=== PATIENT | male | born 1995 | race Caucasian/White ===

== ENCOUNTER 2018-04-27 11:53 | Emergency (ER) | payer BC ==
--- NOTE | 2018-04-27 13:17 | EDPHY ---
H & P Time Seen by Provider: 04/27/18 13:16 HPI/ROS: Chief complaint. Sore throat HPI. 22-year-old male presents with sore throat and ear pain for 3 days. Coughing that is nonproductive. He is having trouble sleeping because of cough sore throat and sore ears. He feels is ears are quite full. He has a history of otitis media and this feels similar. He has subjective fever. He has had a difficult time sleeping. No abdominal pain, vomiting, diarrhea. No rash. No recent travel . Exposure recently to several people with mono ROS 10 systems were reviewed and negative with the exception of the elements mentioned in the history of present illness Past Medical/Surgical History: Healthy Social History: Single, nonsmoker, no alcohol Smoking Status: Never smoked Physical Exam: General Appearance: Alert well-developed male mild distress vital signs are stable. Eyes: Pupils equal and round no pallor or injection. ENT, right tympanic membrane erythematous. Pharynx injected without exudate. Swallowing secretions. Speaking in full sentences. No stridor. Respiratory: Mild inspiratory expiratory rhonchi Cardiovascular: Regular rate and rhythm. Gastrointestinal: Abdomen is soft and nontender, no masses, bowel sounds normal. Neurological: Awake and alert, sensory and motor exams grossly normal. Skin: Warm and dry, no rashes. Musculoskeletal: Neck is supple nontender. Extremities symmetrical, full range of motion. Psychiatric: Patient is oriented X 3, there is no agitation. Constitutional: Initial Vital Signs Temperature (C) 36.9 C 04/27/18 11:55 Heart Rate 92 04/27/18 11:55 Respiratory Rate 16 04/27/18 11:55 Blood Pressure 106/71 04/27/18 11:55 O2 Sat (%) 95 04/27/18 11:55 O2 Delivery Mode Room Air Allergies/Adverse Reactions: Iodine and Iodide Containing Produc Allergy (Verified 04/27/18 11:54) Home Medications: Medication Instructions Recorded Amoxicillin Trihydrate [Amoxil] 500 mg PO TID 7 Days cap 04/27/18 Hydrocodone/APAP 5/325 [Peel 1 each PO Q4-6PRN PRN #7 tab 04/27/18 5/325 (*)] Medical Decision Making Procedures: IV normal saline Rapid strep negative Decadron orally ED Course/Re-evaluation: Re-evaluation 2:35 p.m.. Patient is stable. He and I discussed laboratory evaluation, treatment plan including criteria for return and importance of follow-up and further evaluation. He expresses understanding and agreement Differential Diagnosis: Patient has otitis media by exam. Pharynx is negative for strep. He does not have mono. He does not have stridor or difficulty swallowing secretions. He speaks in a normal voice. This may be viral syndrome. Flu was negative - Data Points Laboratory Results: 04/27/18 04/27/18 04/27/18 Unknown 14:00 13:05 Nasal Influenza A PCR NEGATIVE FOR FLU A (NEGATIVE) Nasal Influenza B PCR NEGATIVE FOR FLU B (NEGATIVE) Monoscreen NEGATIVE (NEGATIVE) Group A Strep Screen Group A Strep DNA Pending 04/27/18 11:58 Nasal Influenza A PCR Nasal Influenza B PCR Monoscreen Group A Strep Screen NEGATIVE (NEGATIVE) Group A Strep DNA Medications Given: Discontinued Medications Dexamethasone (Decadron) 8 mg PO EDNOW ONE Stop: 04/27/18 13:35 Last Admin: 04/27/18 14:02 Dose: 8 mg Sodium Chloride (Ns) 1,000 mls @ 0 mls/hr IV EDNOW ONE; Wide Open PRN Reason: Protocol Stop: 04/27/18 13:36 Last Admin: 04/27/18 14:03 Dose: 1,000 mls Ibuprofen (Motrin) 800 mg PO EDNOW ONE Stop: 04/27/18 13:36 Last Admin: 04/27/18 14:02 Dose: 800 mg Departure - Departure Disposition: Home, Routine, Self-Care Clinical Impression: Otitis media Qualifiers: Otitis media type: unspecified Chronicity: acute Qualified Code(s): H66.90 - Otitis media, unspecified, unspecified ear Condition: Good Instructions: Ear Infection (ED) Additional Instructions: Amoxicillin as antibiotic Ibuprofen 600 mg every 6 hr for discomfort Hydrocodone in addition if necessary for pain Return for worsening symptoms. Recheck in 2-3 days if not improving Referrals: NONE *PRIMARY CARE P,. [Primary Care Provider] - As per Instructions Ingris Christy MD [Medical Doctor] - 2-3 days, if not improved Prescriptions: Amoxicillin Trihydrate [Amoxil] 500 mg PO TID 7 Days cap Hydrocodone/APAP 5/325 [Peel 5/325 (*)] 1 each PO Q4-6PRN PRN #7 tab PRN Reason: Pain, Moderate
[2018-04-27] MEDS ORDERED: DEXAMETHASONE 4 MG TAB PO ONE (13:34)
[2018-04-27] MEDS ORDERED: NS 1,000 ML IV ONE (13:35)
[2018-04-27] MEDS ORDERED: IBUPROFEN 800 MG TAB PO ONE (13:35)
[2018-04-27 14:56] VITALS: BP 103/68
== END 2018-04-27 14:55 | disposition home or self-care (01) ==
LOC: EEVIPCON 11:53
DX: H66.90 Otitis media, unspecified, unspecified ear (principal)

== ENCOUNTER 2018-06-06 10:22 | Emergency (ER) | payer BC ==
[2018-06-06 10:31] VITALS: BP 155/90
--- NOTE | 2018-06-06 11:43 | EDPHY ---
H & P Stated Complaint: L ear pain since this am Time Seen by Provider: 06/06/18 11:36 HPI/ROS: HPI: This is a 22-year-old male who presents with Chief Complaint: Left ear pain times several hours Location: Left ear Quality: Pain Duration: Several hours Signs and Symptoms: + subjective fever, no nausea, no vomiting, no diarrhea, no urinary symptoms, no chest pain, no shortness of breath, no wheezing, no cough, no sore throat, no neck stiffness, no joint pain, no swollen glands, no rash, + sinus congestion Timing: Acute constant Severity: Moderate Context: Patient is student at [employer], presents with waking up this morning with sudden onset of left ear pain that is nonradiating in nature and described as 8/10. Patient reports that he has had some nasal congestion over the last few days. Denies any elevation changes. Reports that he feels "like I have a fever." Denies any ear discharge or bleeding. Denies tinnitus. Modifying Factors: None Comment: ROS: A comprehensive 10 system review of systems is otherwise negative aside from elements mentioned in the history of present illness. MEDICAL/SURGICAL/SOCIAL HISTORY: Medical history: Generally healthy. Does not take any regular medications. Surgical history: Denies Social history: Admits to alcohol and marijuana use. Family history noncontributory. CONSTITUTIONAL: Nontoxic-appearing young adult white male, awake and alert, no obvious distress HEENT: Atraumatic and normocephalic, PERRL, EOMI. Nares patent; no rhinorrhea; mild nasal mucosal edema. Left Tympanic membranes bright red, bulging; TM intact. Right tympanic membrane clear. Oropharynx clear, no exudate and moist pink mucosa. Airway patent. No lymphadenopathy. No meningismus. Cardiovascular: Normal S1/S2, regular rate, regular rhythm, without murmur rub or gallop. PULMONARY/CHEST: Symmetrical and nontender. Clear to auscultation bilaterally. Good air movement. No accessory muscle usage. ABDOMEN: Soft, nondistended, nontender, no rebound, no guarding, no peritoneal signs, no masses or organomegaly. No CVAT. EXTREMITIES: 2/2 pulses, strength 5/5, no deformities, no clubbing, no cyanosis or edema. NEUROLOGICAL: no focal neuro deficits. GCS 15. SKIN: Warm and dry, no erythema. no rash. Good capillary refill. Source: Patient Exam Limitations: No limitations - Medical/Surgical History Hx Asthma: No Hx Chronic Respiratory Disease: No Hx Diabetes: No Hx Cardiac Disease: No Hx Renal Disease: No Hx Cirrhosis: No Hx Alcoholism: No Hx HIV/AIDS: No Hx Splenectomy or Spleen Trauma: No Other PMH: DENIES - Social History Smoking Status: Never smoked Constitutional: Initial Vital Signs Temperature (C) 36.7 C 06/06/18 10:29 Heart Rate 88 06/06/18 10:29 Respiratory Rate 24 H 06/06/18 10:29 Blood Pressure 155/90 H 06/06/18 10:29 O2 Sat (%) 99 06/06/18 10:29 O2 Delivery Mode Room Air Allergies/Adverse Reactions: Iodine and Iodide Containing Produc Allergy (Verified 04/27/18 11:54) Home Medications: Medication Instructions Recorded Amoxicillin/Clavulanate Pot 875 mg PO BID #14 tab 06/06/18 [Augmentin 875 MG TAB (*)] oxyCODONE/APAP 5/325 [Percocet 1 - 2 tab PO Q4H PRN #10 tab 06/06/18 5/325 (*)] Medical Decision Making ED Course/Re-evaluation: Patient has left otitis media without spontaneous rupture of TM. Given a prescription for Augmentin and Percocet Advised follow-[facility] with [facility]. This patient was seen under the supervision of my secondary supervising physician. I evaluated care for this patient independently. Differential Diagnosis: Differential diagnosis includes but is not limited to Urgent Care becker tube dysfunction, otitis media, viral pharyngitis, upper respiratory infection. Departure - Departure Disposition: Home, Routine, Self-Care Clinical Impression: Left acute serous otitis media Qualifiers: Recurrence: non-recurrent Qualified Code(s): H65.02 - Acute serous otitis media , left ear Condition: Good Instructions: Ear Infection (ED) Additional Instructions: Take antibiotic as directed. Do not skip a dose. Take Tylenol 650 mg every 4 hours and/or Ibuprofen 600 mg every 8 hours with food as needed for pain. Use Percocet every 6 hours as needed for severe/break through pain. Do not use Tylenol and Percocet concomitantly. Use [id number] Sudafed every 6 hr as needed for nasal congestion. Use [id number] nasal spray like Flonase or Rhinocort as needed for eustachian tube dysfunction. Follow-up with primary care provider in 5 days for re-evaluation. Referrals: [facility],. [Clinic] - As per Instructions Prescriptions: Amoxicillin/Clavulanate Pot [Augmentin 875 MG TAB (*)] 875 mg PO BID #14 tab oxyCODONE/APAP 5/325 [Percocet 5/325 (*)] 1 - 2 tab PO Q4H PRN #10 tab PRN Reason: Pain, Severe
[2018-06-06] MEDS ORDERED: OXYCODONE/APAP 5/325 TAB PO ONE (11:57)
== END 2018-06-06 12:00 | disposition home or self-care (01) ==
DX: H65.02 Acute serous otitis media, left ear (principal)

== ENCOUNTER 2018-07-31 10:54 | Emergency (ER) | payer BC ==
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
[2018-07-31] MEDS ORDERED: NS 1,000 ML IV ONE (12:01)
[2018-07-31] MEDS ORDERED: methylPREDNISolone SOD SUCC 125 MG/2 ML VIAL IVP ONE (12:01)
[2018-07-31] MEDS ORDERED: IOPAMIDOL (ISOVUE-300) 100 ML BTL ONE (12:49)
[2018-07-31 15:09] VITALS: BP 98/60
== END 2018-07-31 15:08 | disposition home or self-care (01) ==
DX: S62.001A Unspecified fracture of navicular [scaphoid] bone of right wrist, initial encounter for closed fracture (principal); S83.92XA Sprain of unspecified site of left knee, initial encounter; S09.90XA Unspecified injury of head, initial encounter; S39.91XA Unspecified injury of abdomen, initial encounter; H93.12 Tinnitus, left ear; Y04.8XXA Assault by other bodily force, initial encounter
CPT/HCPCS: 82435-PO; 82565-PO; 82947-PO; 84132-PO; 84295-PO; 84520-PO; 85014-ER; 96374; J1200; J2930; L1830; L3807; Q9967

== ENCOUNTER 2018-08-16 20:39 | Emergency (ER) | payer BC ==
--- NOTE | 2018-08-16 21:02 | EDPHY ---
General Time Seen by Provider: 08/16/18 20:44 Narrative: CLINICAL IMPRESSION: Pharyngitis ASSESSMENT/PLAN: 22-year-old male presents to the emergency department with 3 days of sore throat. No associated cough, wheezing, chest tightness, neck swelling, dental pain, or clinical findings to suggest exudate of tonsillitis, peritonsillar abscess, retropharyngeal abscess, Zackery's angina, stomatitis, uvulitis, neck abscess. Vital signs stable. Rapid strep negative. I suspect patient has a viral syndrome. Supportive care encouraged, Decadron given in the ED for swelling and Piermont provided for pain control. Prescription for Tussionex provided to fill tomorrow. PCP follow-up encouraged, warning signs return to ED sooner discussed discharge. DIFFERENTIAL DX: Differential includes but not limited to viral pharyngitis, exudative tonsillitis, peritonsillar abscess, retropharyngeal abscess, uvulitis, Zackery's angina ED PROCEDURES: See lab and/or imaging results below ED COURSE: Negative rapid strep noted. Patient informed. CHIEF COMPLAINT: Sore throat HPI: 22-year-old otherwise healthy male presents to the emergency department with 3 days of sore throat. Patient reports when he clears his throat or coughs forcefully have some blood in his mucus. He denies consistent cough, asthma or pulmonary history. He has been tolerating secretions and his appetite is unchanged. He reports possibility of subjective fever and chills but has not taken temperatures. No history of chronic sore throat or tonsillitis. No ill exposures. No recent travel. He has been trying [id number] remedies without significant improvement. PAST MEDICAL HISTORY: None reported See triage summary and nurse notes for addition applicable history Pertinent Past Surgical History: None reported Family History: Noncontributory Social History: Otherwise healthy REVIEW OF SYSTEMS: A full 10 point review of systems was negative except for those mentioned in HPI. PHYSICAL EXAM: General Appearance: Alert, oriented, appropriate, cooperative, NAD, well hydrated, non-toxic appearing, tolerating secretions well, VSS, no hypoxia. HEENT: TMs are clear bilaterally no perforation or FB, no injection, no evidence of serous or mucopurulent otitis. Oropharynx clear is with mild erythema no exudates, no tonsillar hypertrophy or asymmetry. Dentition without abnormality. Neck: Supple, nontender, no lymphadenopathy, no midline pain, FROM, no meningismus. Respiratory: There are no retractions, lungs are clear to auscultation. Cardiac: Regular rate and rhythm, no murmurs or gallops. Skin: Warm, dry, no rashes, no nodules on palpation. MEDICAL DECISION MAKING: Patient was seen independently. Secondary supervising physician at time of evaluation was: Dr. Maldonado. Diagnosis: Viral pharyngitis. New, requires workup Summary: See Assessment and Plan for summary of ED visit Clinical lab tests: ordered / reviewed. Patient Progress: Stable for discharge . - History Smoking Status: Never smoked - Objective Vital Signs: Initial Vital Signs Temperature (C) 36.9 C 08/16/18 20:42 Heart Rate 86 08/16/18 20:42 Respiratory Rate 18 08/16/18 20:42 Blood Pressure 105/66 08/16/18 20:42 O2 Sat (%) 98 08/16/18 20:42 O2 Delivery Mode Room Air Allergies/Adverse Reactions: Iodine and Iodide Containing Produc Allergy (Verified 08/16/18 20:43) Home Medications: Medication Instructions Recorded HYDROcodone/CHLORPHEN P-STIREX 5 ml PO HS PRN #50 [email or web address] 08/16/18 [Tussionex Pennkinetic Susp] Laboratory Results: 08/16/18 08/16/18 Unknown 20:40 Group A Strep Screen NEGATIVE (NEGATIVE) Group A Strep DNA Pending Medications Given: Discontinued Medications Hydrocodone Bitart/Acetaminophen (Piermont 5/325) 2 tab PO EDNOW ONE Stop: 08/16/18 21:57 Last Admin: 08/16/18 22:04 Dose: 2 tab Dexamethasone (Decadron) 12 mg PO EDNOW ONE Stop: 08/16/18 21:25 Last Admin: 08/16/18 21:27 Dose: 12 mg Departure - Departure Disposition: Home, Routine, Self-Care Clinical Impression: Pharyngitis Condition: Good Instructions: Tonsillitis (ED) Additional Instructions: DISCHARGE INSTRUCTIONS FROM YOUR DOCTOR Thank you for visiting our emergency department today. You were treated by a physician entry level assistant manager today and your case was reviewed with our ED Attending physician. Please keep in mind that discharge from the emergency department does not mean that there is nothing wrong - it simply means that we have not identified an emergency condition that requires further evaluation or treatment in the hospital. You should always plan to follow up with primary care for re- evaluation of your condition in the next 2-3 days. If you have been referred to a specialist, please call as soon as possible (today or tomorrow) to schedule your follow up appointment at the appropriate time. RAPID STREP TEST IS NEGATIVE. A THROAT CULTURE IS PENDING. WE WILL CALL YOU IF THIS IS POSITIVE. A DOSE OF DECADRON WAS GIVEN FOR INFLAMMATION IN THE ED. YOU RECEIVED A DOSE OF NORCO FOR PAIN TONIGHT. A PRESCRIPTION FOR COUGH SYRUP WAS PROVIDED TO FILL TOMORROW IF NEEDED. FOLLOW UP WITH A PRIMARY CARE DOCTOR. IF YOU DO NOT HAVE 1 A REFERRAL WAS GIVEN. RETURN TO THE EMERGENCY DEPARTMENT FOR SEVERE THROAT PAIN, INABILITY TO TOLERATE YOUR OWN SALIVA, NECK SWELLING, PERSISTENT HIGH FEVERS, OR ANY OTHER CONCERN. People present with illnesses and injuries in different ways, and it is always possible that we have missed something. You may always return for re-evaluation if symptoms worsen or if they are not improving or if you develop new/different symptoms. Again, thank you for choosing our emergency department. We hope that you feel better. Referrals: NONE *PRIMARY CARE P,. [Primary Care Provider] - As per Instructions John Paiz, [Medical Doctor] - 1-2 days without fail Prescriptions: HYDROcodone/CHLORPHEN P-STIREX [Tussionex Pennkinetic Susp] 5 ml PO HS PRN #50 [email or web address] PRN Reason: Cough, Moderate
[2018-08-16] MEDS ORDERED: DEXAMETHASONE 4 MG TAB PO ONE (21:24)
[2018-08-16] MEDS ORDERED: HYDROCODONE/APAP 5/325 TAB PO ONE (21:56)
[2018-08-16 22:12] VITALS: BP 109/68
[2018-08-17 10:43] LABS: GROUP A STREP DNA (THROAT) POSITIVE (NEGATIVE)
== END 2018-08-16 22:12 | disposition home or self-care (01) ==
DX: J02.9 Acute pharyngitis, unspecified (principal)